=== PATIENT | female | born 1950 | race Caucasian/White ===

== ENCOUNTER 2023-08-18 07:39 | Emergency (ER) | payer OTHER ==
[~2023-08-18] VITALS: Ht 157.5 cm; Wt 66.7 kg
[2023-08-18] MEDS ORDERED: LABETALOL 20MG SYG IV ONE (08:00)
[2023-08-18] MEDS ORDERED: METH-662 PO (08:09)
[2023-08-18] MEDS ORDERED: IBUP-2070 PO (08:09)
[2023-08-18] MEDS ORDERED: KETOROLAC 60 MG VIAL (30MG/ML) IM ONE (08:15)
[2023-08-18 08:25] VITALS: BP 154/76; PULSE 60; RESP 17; O2SAT 98
[2023-08-18] MEDS ORDERED: KETOROLAC 30MG VIAL (30MG/ML) IVP ONE (08:30)
== END 2023-08-18 08:35 | disposition home or self-care (01) ==
LOC: EDH 07:39
DX: M54.41 Lumbago with sciatica, right side (principal); I10 Essential (primary) hypertension
CPT/HCPCS: 99283; 96374; 96375; J1885; 96372